=== PATIENT | female | born 1940 | race Caucasian/White ===

== ENCOUNTER 2017-01-25 13:35 | Observation (INO) | payer MEDICARE ==
--- NOTE | ~2017-01-25 | A ---
[facility] Nutrition Therapy DATE: 01/27/17 Patient: CAMERON HILLS Physician: JOSÉ MIGUEL Address: [address] [place] [address] ROAD Room/Bed: [address] [place] [address], Zip: [place] [address] Admit Date: 01/26/17 Date of : 38 Height: 5 5 Weight: 116 53 NUTRITIONAL ASSESSMENT: REASON: 3 NUTRITION RISK PT RE: 5# WEIGHT LOSS + POOR PO INTAKE PT IS 76 Y.O. FEMALE ADMITTED FOR ALTERED MENTAL STATUS, HALLUCINATIONS PMH: HTN, COPD, CVA, DEMENTIA, SEIZURE DISORDER, HX OF DYSPHAGIA Anthropometrics: 5'5", WT: 116# (53 KG), BMI: 19.3, 93%IBW Labs: WNL Meds: NACL, KEPPRA I/O & Bowel function: 720/900 Skin Integrity: DRY FLAKY SKIN Estimated Nutrition Needs: INCREASED NUTRIENT NEEDS 2' DECREASED PO INTAKE AND APPETITE, CURRENT CONDITION Assessment: CHART REVIEWED AND EVENTS NOTED. PT SEEN FOR WEIGHT LOSS + POOR PO INTAKE. PT SLIGHTLY CONFUSED AT TIME OF VISIT REPORTING DECREASED PO INTAKE 2' DECREASED APPETITE. PT NOTES "HAVING DECREASED APPETITE FOR QUITE SOME TIME". PT HAD LUNCH TRAY AT BEDSIDE-NOTED PT ONLY TOOK BITES (PER RD OBSERVATION). PT ADDS THAT SHE ONLY ATE A PANCAKE AND DRANK JUICE FOR BREAKFAST. PT UNABLE TO REPORT ANY RECENT WEIGHT LOSS 2' BEING CONFUSED AT THIS TIME. PER RD ASSESSMENT IN MAY 2016, PT'S UBW IS ~121#. THIS RD ENCOURAGED ADEQUATE KCAL AND PROTEIN INTAKE (SMALL FREQUENT MEALS) + SUPPLEMENT INTAKE, PT AGREED TO ENSURE PUDDING BID, RD WILL ORDER. PT NOT APPROPRIATE FOR DIET EDUCATION. RD TO FOLLOW. SEE RECOMMENDATIONS BELOW. Dx: INADEQUATE PROTEIN-ENERGY INTAKE R/T DECREASED APPETITE AEB PT REPORT ABOVE, ?WEIGHT LOSS NOTED, LOW BODY WEIGHT. Intervention: 1. HH DIET 2. BUTTERSCOTCH ENSURE PUDDING BID Monitoring, Evaluation and Goals: 1. ORAL INTAKE; PROVIDE AND CONSUME ADEQUATE NUTRITION W/NO C/O N/V/D (PO>50%) 2. WEIGHTS; PREVENT FURTHER WEIGHT LOSS; PROMOTE LEAN BODY MASS MONITOR: -PO INTAKE/APPETITE [facility] Nutrition Therapy DATE: 01/27/17 Patient: CAMERON HILLS Physician: JOSÉ MIGUEL Address: [address] [place] [address] Room/Bed: [address] [place] [address], Zip: [place] [address] Admit Date: 01/26/17 Date of : 38 Height: 5 5 Weight: 116 53 -SUPPLEMENT INTAKE -WEIGHTS Recommendations: 1. ORDER BUTTERSCOTCH ENSURE PUDDING BID W/MEALS 2. APPRECIATE FAMILY AND STAFF TO ENCOURAGE PO AND SUPPLEMENT INTAKE. PROVIDE ASSISTANCE W/ORDERING MEALS NEEDED 3. IF PO INTAKE MINIMAL, CHANGE CURRENT DIET ORDER TO REGULAR TO ALLOW MORE FOOD CHOICES RD WILL F/U PER PROTOCOL PT IS MILD/MODERATELY COMPROMISED Respectfully, TATYANA VASQUEZ MS, RD, LD Food and Nutritional Services [facility] cc: client file
--- NOTE | ~2017-01-25 | CR72 ---
[facility] A Service of [facility] & [facility] RADIOLOGY TEXT RESULTS PATIENT: CAMERON HILLS LOCATION: [facility] : 38 UNIT #: [id number] AGE: [address]: Jane Soto MD SEX: F ORDER DR: [id number] [facility] [address] [place], [place] [address] [id number] MR#: [id number] Acc #: [id number] NAME: CAMERON HILLS : 1940 SEX: F STUDY DATE/TIME: 01/25/2017 13:39 UNIT: [facility] ROOM: STUDY DESCRIPTION: CR Chest Single View Portable Attending Physician: Jane Soto M.D. Ordering Physician: Jane Soto M.D. Primary Care Physician: Tomas Parker M.D. MEDICAL IMAGING REPORT This report is preliminary unless electronic signature is present EXAM Portable chest. HISTORY Shortness of air, smoker. COMPARISON 06/11/2016 FINDINGS Portable view of the chest demonstrates prominent interstitial markings, patchy hyperlucency suggesting underlying emphysema. No acute airspace disease or consolidation. No effusions. Heart and mediastinum unremarkable. No invasive tubes or lines. No pneumothorax. Dictated by... Milagro Drummond M.D. THIS IS AN ELECTRONICALLY VERIFIED REPORT Milagro Drummond M.D. at 01/25/2017 3:32 PM RYAN/emmanuel TD: 01/25/2017 15:11 JOB #: [id number] MEDICAL IMAGING REPORT Page 1 of 1 COPY
--- NOTE | ~2017-01-25 | DS ---
Unit #: [id number] #: [id number] Patient: CAMERON HILLS [id number] [address] [place], [place] [address] [id number] I MR#: [id number] NAME: CAMERON HILLS. ROOM: 218 Age: 76 Sex: F Admission Date: 01/26/2017 : 1940 Discharge Date: 01/30/2017 Attending Physician: Wesley Morse M.D. Primary Care Physician: Tomas Parker M.D. DISCHARGE SUMMARY DISCHARGE DIAGNOSES 1. Toxic metabolic encephalopathy. 2. 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 3. Cervical dystonia. 4. History of cerebrovascular accident. 5. Chronic obstructive pulmonary disease. 6. Seizure disorder. 7. History of urinary tract infections. 8. History of skin cancer. DISCHARGE MEDICATIONS 1. Keppra 500 mg b.i.d. 2. Risperdal 0.5 mg twice daily. 3. Klonopin 0.5 mg twice daily. 4. Singulair 10 mg daily. 5. Multivitamins, one daily. 6. Aspirin 81 mg daily. 7. Baclofen 20 mg t.i.d. 8. Cholecalciferol 1000 units daily. 9. Symbicort 80/4.5, two puffs b.i.d. 10. Combivent, two inhalations q.i.d. DISPOSITION Home or [facility] unit. HOSPITAL COURSE 76-year-old white female who is followed by [facility] and has not seen us in the office in quite some time. She has been followed by Dr. Cristobal in the past but now receives her care to [facility]. She no longer lists Gilmer Parker as her primary care provider. We were called to admit the patient despite this. She presented to the emergency room because she was having hallucinations. She has not had any increased shortness of breath. She had some cough. She denied any dysuria. She said she wasn't on any new medicines. She wasn't sure but thought her son was moving to [place]. She had had hallucinations about a daughter. On presentation to the emergency room, her chest x-ray showed no infiltrate, mass or congestion. There were emphysematous changes bilaterally. Arterial blood gases were not done. Room air O2 saturation was 95%. BMP was unremarkable. Glucose was 89. Ammonia level was 18. Coagulation studies were normal. White blood cell count was 6000, hematocrit was 35.9. Urine tox screen was positive for benzodiazepines. Urine culture was 2+ leukocyte esterase. She was admitted to the hospital because of possible toxic metabolic encephalopathy and possible UTI. She was seen by Unit #: [id number] #: [id number] Patient: CAMERON HILLS José Krishna, psychiatry, in consult who felt that she had major neurocognitive disorder secondary to Alzheimer disease with behavioral consequences and psychosis. He decreased her dose of Klonopin from 1.5 mg twice a day to 0.5 mg twice a day and added Risperdal 0.5 mg twice daily. Her urine culture initially returned mixed growth, 40,000 colonies/mL. Subsequent followup revealed mixed growth greater than 100,000, likely another contaminated sample. Another urine was collected and pending. She remained afebrile during her hospital stay. Her white count remained low at 7800. Dr. Krishna recommended [facility]. Her son was contacted Monday and he is in town and I understand is willing and plans to take care of his mother when she returns home. She has received five days of Rocephin. We will try to follow up on the urine culture and make recommendations if that comes back positive. She will follow up with [facility]. Dictated by... Wesley Morse M.D. ANKUR/tala TD: 01/31/2017 08:25 JOB #: [id number] DISCHARGE SUMMARY Page 1 of 1 X Wesley Morse MD X DISCHARGE SUMMARY
--- NOTE | ~2017-01-25 | EKG ---
PATIENT: CAMERON HILLS UNIT #: [id number] Ventricular Rate: 62 BPM Atrial Rate: 62 BPM P-R Interval: 202 ms QRS Duration: 66 ms Q-T Interval: 450 ms QTC Calculation(Bezet): 456 ms P Loyal: 68 degrees Calculated R Loyal: 39 degrees Calculated T Loyal: 55 degrees Diagnosis Line: Normal sinus rhythm with sinus arrhythmia Diagnosis Line: Normal ECG Diagnosis Line: When compared with ECG of 09-JUN-2016 13:37, Diagnosis Line: No significant change was found Diagnosis Line: Confirmed by CHARLOTTE CANTU MD ([id number]) on 01/26/2017 Diagnosis Line: 7:58:52 PM INTERPRETING MD: PEPE THOMPSON
--- NOTE | ~2017-01-25 | CO ---
Unit #: [id number] #: [id number] Patient: CAMERON ESTEBAN [id number] [address] [place], [place] [address] [id number] I MR#: [id number] NAME: CAMERON ESTEBAN. ROOM: 218 Age: 76 Sex: F Admission Date: 01/26/2017 : 1940 Attending Physician: Wesley Morse M.D. Primary Care Physician: Tomas Parker M.D. Consultation Date: 01/26/2017 CONSULTATION REPORT REASON FOR CONSULTATION Dementia, psychosis. HISTORY OF PRESENT ILLNESS Ms. Cameron Esteban is a 76-year-old white female, seen in room 218, bed 1 at [facility] on 01/26/2017 for the above-mentioned complaint. The patient has a history of COPD, seizure, cervical dystonia, CVA, multiple admissions for altered mental status. The patient was admitted with altered mental status. The patient reported having problems with dreams, forgetfulness, confusion. The patient carries a diagnosis of dementia and currently having above-mentioned symptoms. The patient was dressed casually and sitting comfortably. The patient reported having hallucination, confusion, inability to care for herself. According to the staff, the patient has been calling 911. The patient currently denied any suicidal or homicidal ideation. Denied any auditory or visual hallucination, but having delusions, paranoia. PAST PSYCHIATRIC HISTORY Remarkable for history of dementia, history of psychosis. MEDICAL HISTORY The patient has a history of COPD; seizure disorder; chronic back pain; cervical dystonia, followed by Neurology; recurrent urinary tract infection; recurrent admission for toxic-metabolic encephalopathy; history of skin cancer; chronic pain. ALLERGIES To Tegretol, tetanus, Botox. MEDICATIONS The patient is on DuoNeb, Tylenol, Keppra, Remeron 15 mg at bedtime, MiraLax, Lasix, Protonix, baclofen, vitamin D, Symbicort. FAMILY HISTORY AND SOCIAL HISTORY The patient lives by herself. The patient has a poor support system. No history of any abuse. Denied any use of drugs or alcohol. REVIEW OF SYSTEMS Complete review of systems is unremarkable. The patient denied any complaints. MENTAL STATUS EXAMINATION General appearance; the patient is thin built, casually dressed in hospital attire, lying comfortably in bed. Attention span and Unit #: [id number] #: [id number] Patient: CAMERON ESTEBAN concentration, fair. Speech; slow, rapid. Oriented in self, place, and time. Mood and affect, labile. Thought process, circumstantial. Thought content; the patient denied any thoughts of harming self or others, or any auditory or visual hallucination, but paranoid, delusional. Recent and remote memory; fair to poor, problem with short-term and immediate memory. Language, fair. Fund of knowledge, fair. Insight and judgment, fair to slightly impaired. DIAGNOSES Psychiatric: Major neurocognitive disorder secondary to Alzheimer disease with behavioral disturbances, F02.81; psychosis, not otherwise specified, F29.0. Secondary diagnosis: Deferred. Medical diagnosis: Please refer to H and P. Stressors: Psychosocial stressors. ASSESSMENT/PLAN 1. Supportive psychotherapy and psychoeducation provided to the patient. 2. Educated about benefits and side effects of medication and course and prognosis of illness. 3. Advised to start the patient on Risperdal 0.5 mg b.i.d. and advised to lower the dosage of Klonopin to 0.5 mg b.i.d. We will closely monitor. If needed, consider further adjustment of medication or consider inpatient Geropsych Unit admission for psychiatric stabilization. Please feel free to call if any questions, telephone #[phone]. Dictated by... Lisa Levy/christa TD: 01/28/2017 05:36 JOB #: [id number] CONSULTATION REPORT Page 1 of 1 X Panda Krishna MD X CONSULTATION REPORT
--- NOTE | ~2017-01-25 | CO ---
Unit #: [id number] #: [id number] Patient: CAMERON ESTEBAN [id number] [facility]. [place], [place] [address] [id number] I MR#: [id number] NAME: CAMERON ESTEBAN. ROOM: 218 Age: 76 Sex: F Admission Date: 01/26/2017 : 1940 Attending Physician: Wesley Morse M.D. Primary Care Physician: Tomas Parker M.D. Consultation Date: 01/27/2017 CONSULTATION REPORT REASON FOR CONSULTATION Followup. DISCUSSION Ms. Cameron Esteban is a 76-year-old female, seen as a followup on 01/27/2017 in room 218, bed 1 at [facility]. The patient was compliant, cooperative. Mood is sad, dysphoric, flat. The patient denied any complaints. The patient was eating her lunch, cooperative, redirectable. No aggression, but guarded, paranoid, problem with memory, confusion. REVIEW OF SYSTEMS Complete review of systems is unremarkable. MENTAL STATUS EXAMINATION General appearance; the patient dressed casually in hospital attire. Attention span and concentration, poor. Speech, slow in volume. Oriented in place and person. Mood and affect were labile. Thought process, circumstantial. Thought content; guarded, paranoid, delusional. Recent and remote memory, poor. Language, intact. Fund of knowledge, fair. Insight and judgment, fair to slightly impaired. DIAGNOSES Psychiatric: Probable major neurocognitive disorder secondary to Alzheimer disease with behavioral disturbances, F02.81; psychosis, not otherwise specified, F29.0. ASSESSMENT/PLAN 1. Supportive psychotherapy and psychoeducation provided to the patient. 2. Educated about benefits and side effects of medication and course and prognosis of illness. 3. Recommending to continue with a combination of Risperdal and Klonopin with a plan to transfer the patient to geropsych unit for psychiatric stabilization. Please feel free to call if any questions, telephone #[phone]. Dictated by... Panda Krishna M.D. ED/christa TD: 01/28/2017 05:12 JOB #: [id number] Unit #: [id number] #: [id number] Patient: CAMERON ESTEBAN CONSULTATION REPORT Page 1 of 1 X Panda Krishna MD CONSULTATION REPORT
--- NOTE | ~2017-01-25 | CO ---
Unit #: [id number] #: [id number] Patient: CAMERON ESTEBAN [id number] [address] [place], [place] [address] [id number] I MR#: [id number] NAME: CAMERON ESTEBAN. ROOM: 218 Age: 76 Sex: F Admission Date: 01/26/2017 : 1940 Attending Physician: Wesley Morse M.D. Primary Care Physician: Tomas Parker M.D. CONSULTATION REPORT HISTORY OF PRESENT ILLNESS Ms. Esteban is a 76-year-old white female with a history of COPD, seizure disorder, cervical dystonia, history of CVA, who has had multiple admissions for altered mental status. She presented to the emergency room, because she had been having hallucinations. She had not really had any increased shortness of breath. She has had some cough and congestion and thought she might have a cold. She had no dysuria. She does not think she was on any new medications. Also, she cannot tell me what medicines she is on. Apparently her son is moving back to [place]. In the chart, on the ER note, it was noted that she may have been seen by [facility] and APS was to be contacted. Apparently, the son was called to take the patient home, but he refused; apparently, he was driving to the [place]. She was admitted for evaluation of hallucinations and confusion and inability to care of herself. Her lab work revealed a chest x-ray without infiltrate, mass, or congestion with evidence of emphysematous changes bilaterally. No blood gases were done, but her room air O2 saturation in the emergency room was 95%. Her BMP was unremarkable, glucose was normal at 89. Her ammonia level was 18. Coagulation studies were normal. White blood cell count was 6000, hematocrit was 35.9, platelet count was normal. Urine tox screen was positive for benzodiazepines. Urinalysis was 2+ leukocyte esterase, 25 to 50 white blood cells. Urine culture was sent. PAST MEDICAL HISTORY Significant for COPD, seizure disorder, chronic back pain, cervical dystonia followed by Dr. Burt of Neurology, recurrent urinary tract infections, recurrent admissions for toxic metabolic encephalopathy, history of skin cancer, chronic pain. ALLERGIES Tegretol, tetanus, and Botox. HOME MEDICATIONS She is unsure what they were, but in 05/2016 her discharge medicines included DuoNeb, Tylenol, Keppra 500 b.i.d., Remeron 15 daily, milk of magnesia every 6 hours as needed, MiraLax 17 g daily, Lasix 20 mg daily, Protonix 40 daily, baclofen 20 daily, vitamin D 1000 units daily, and Symbicort 80/4.5 two puffs b.i.d. SOCIAL HISTORY Has lives in her house, is not very mobile, smokes a half a pack of cigarettes a day. Denies alcohol. Apparently, son moving back to [place]. Unit #: [id number] #: [id number] Patient: CAMERON ESTEBAN REVIEW OF SYSTEMS GENERAL: No definite fevers or chills. HEENT: No rhinorrhea or nasal congestion. PULMONARY: Does admit to dyspnea on exertion. Some cough. No purulent sputum. No hemoptysis. GI: Says she is on the verge of diarrhea. No nausea or vomiting. : No overt hematuria or dysuria. She does have frequent urinary tract infections. ENDOCRINE: No polyuria or polydipsia. HEMATOLOGIC: No easy bruising or bleeding. SKIN: No rash, but very dry skin. CARDIAC: No chest pain or palpitations. NEURO: Does have some history of CVA and cervical dystonia. PHYSICAL EXAMINATION GENERAL: White female, in no distress. VITAL SIGNS: Blood pressure is 122/70, pulse is 86, respiratory rate 19, afebrile. HEENT: Normocephalic and atraumatic. Pupils are equal, round, and reactive. Sclerae nonicteric. Nasal passages patent. Posterior pharynx clear. Mucous membranes moist. Edentulous. NECK: Supple. Trachea midline. No cervical or supraclavicular lymphadenopathy. LUNGS: Diminished breath sounds bilaterally. Prolonged expiratory phase. No wheezing. CARDIAC: Regular rate and rhythm. Could not appreciate murmur, rub, or gallop. ABDOMEN: Nontender. Bowel sounds present. No hepatosplenomegaly. EXTREMITIES: Without clubbing, cyanosis, or edema. Pulses 1+ bilaterally. NEURO: Cervical dystonia. Awake. She is oriented to person, place, and time. She knows the president. She knows her birthday. She appears to be hallucinating, though thinking that her daughter is in the room. She moves all 4 extremities. Cranial nerves grossly intact. Muscle strength symmetric. Affect calm. SKIN: Warm and dry. Dry, scaly skin. IMPRESSION 1. Toxic metabolic encephalopathy. 2. Hallucinations. 3. Possible urinary tract infection. 4. Chronic obstructive pulmonary disease and tobacco abuse. 5. Cervical dystonia. 6. Seizure disorder. PLAN We will cover with antibiotics for possible urinary tract infection. We will have social service, discharge planning, and APS notified of the patient's situations. We will have Psychiatry see her for hallucinations. We will contact her drugstore to determine exactly what medication she is taking and she is unaware. We will place her on SCDs. Further recommendations pending this. Dictated by... Wesley Morse M.D. Unit #: [id number] #: [id number] Patient: CAMERON ESTEBAN LPM/modl TD: 01/27/2017 05:28 JOB #: [id number] CONSULTATION REPORT Page 1 of 1 X Wesley Morse MD X CONSULTATION REPORT
[~2017-01-25 13:35] MED LIST: ACETAMINOPHEN PO; ALBUTEROL MININEB NEB; ALBUTEROL17 GM; ALBUTEROL17 GM INH; AMBIEN; AMBIEN PO; AMBIEN10 MG PO; ARIXTRA2.5 MG/0.1 SQ; ASPIR-TRIN325 MG PO; ASPIRIN; ASPIRIN81 M2 PO; ASPIRIN81 MG PO; ATIVAN; ATIVAN PO; ATIVAN0.5 MG PO; BACLOFEN10 MG PO; BACLOFEN20 M1 PO; BENADRYL PO; CELEXA PO; COLACE; COLACE PO; COMBIVENT MININEB INH; COMBIVENT U/D3 M1 INH; COMBIVENT14.7 GM INH; CYMBALTA PO; DUONEB; FLORASTOR250 M1 PO; GAS-X166 MG; K-DUR10 MEQ PO; KCL PO; KEPPRA500 M1 PO; KEPPRA500 M2 PO; KEPPRA500 MG PO; KLONOPIN1 MG PO; LASIX20 MG PO; LEXAPRO PO; LEXAPRO20 MG PO; LEXAPRO5 MG PO; LORAZEPAM0.5 MG PO; LYRICA PO; LYRICA100 MG PO; LYRICA50 MG PO; METHADOSE; MILK OF MAGNESIA PO; MIRALAX17 G2 PO; MORPHINE IR PO; MORPHINE SULFA100 M1 PO; MORPHINE SULFA100 M2 PO; MORPHINE SULFAT60 M1 PO; MYLANTA GAS80 M1 PO; NEXIUM PO; NORFLEX100 M1 PO; NORFLEX100 MG; NORFLEX100 MG PO; NORVASC2.5 MG PO; OXYCODON-ACETA1 EAC1 PO; PAXIL PO; PERCOCET 7.5-31 EACH PO; PERCOCET 7.5/321 TAB PO; PERCOCET5/325 PO; PLAVIX; PLAVIX PO; PREVACID; PROTONIX20 MG PO; REMERON15 MG PO; SENNA PO; SYMBICORT INH; TRAMADOL HCL50 M1 PO; TRAMADOL HCL50 M2 PO; ULTRAM PO; VANCOMYCIN HCL1 GM IV; VITAMIN D-32000 UNI1 PO; ZOCOR; ZOFRAN PO
[2017-01-25 14:06] LABS: BASOPHIL# 0.1 X10e3 (0-0.3); BASOPHIL% 1.2 % (0-2.5); EOSINOPHIL# 0.1 X10e3 (0-0.7); EOSINOPHIL% 0.9 % (0.0-7.0); HEMATOCRIT 35.9 % (35.0-45.0); HEMOGLOBIN 11.7 gm/dL (12.0-16.0); LYMPHOCYTE# 1.5 X10e3 (1.0-3.5); LYMPHOCYTE% 25.2 % (17.0-45.0); MEAN CELL VOLUME 80.7 FL (83-96); MEAN CORPUSCULAR HEMOGLOBIN 26.4 PG (28-34); MEAN CORPUSCULAR HGB CONC 32.7 g/dL (30-36); MEAN PLATELET VOLUME 8.2 FL (6.5-11.5); MONOCYTE# 0.6 X10e3 (0-1.0); MONOCYTE% 10.2 % (3.0-12.0); NEUTROPHIL# 3.7 X10e3 (1.5-7.1); NEUTROPHIL% 62.5 % (40-75); PLATELET COUNT 237 X10e3 (140-420); RED BLOOD COUNT 4.44 X10e (3.90-5.30)
[2017-01-25 14:07] LABS: DIFF IND NO
[2017-01-25 14:18] LABS: INR 1.1; PROTHROMBIN TIME (PATIENT) 11.2 SECONDS (9.6-11.5)
[2017-01-25 14:24] LABS: URINE SOURCE CLEAN CATCH
[2017-01-25 14:31] LABS: ALBUMIN SERUM 4.3 g/dL (3.5-5.0); BILIRUBIN, DIRECT 0.1 mg/dL (0.0-0.2); BILIRUBIN,INDIRECT 0.9 mg/dL (0.0-0.9); BUN/CREATININE RATIO 23.33; CALCIUM SERUM 9.1 mg/dL (8.4-10.2); CREATININE SERUM 0.9 mg/dL (0.6-1.4); GLOM FILT RATE Estimated 61.3 mL/min (>60); POTASSIUM 3.5 mmol/L (3.5-5.1); PROTEIN TOTAL SERUM 7.8 g/dL (6.0-8.3)
[2017-01-25 14:36] LABS: URINE APPEARANCE CLEAR; URINE BILIRUBIN NEG (NEG); URINE BLOOD NEG (NEG); URINE COLOR YELLOW; URINE GLUCOSE NEG (NEG); URINE KETONE 1+ (NEG); URINE LEUKOCYTE ESTERASE 2+ (NEG); URINE NITRATE NEG (NEG); URINE PROTEIN NEG (NEG); URINE SPECIFIC GRAVITY 1.022 (1.003-1.035)
[2017-01-25 14:39] LABS: CULTURE INDICATED? YES; URBCS1 AUWI 0-2 /[HPF] (0-2); URINE BACTERIA AUWI NEG (NEGATIVE); URINE SQUAMOUS EPITHELIAL CELL NONE SEEN /[HPF]; UWBCS1 AUWI 25-50 (0-5)
[2017-01-25 14:52] LABS: AMPHETAMINE NEG (NEG); BARBITURATES NEG (NEG); BENZODIAZEPINES POS (NEG); COCAINE NEG (NEG); MARIJUANA NEG (NEG); OPIATES NEG (NEG); TRICYCLIC ANTIDEPRESSANTS NEG (NEG); U METHADONE NEG (NEG)
[2017-01-26] MEDS ORDERED: SINGULAIR PO (07:51)
[2017-01-26] MEDS ORDERED: KEPPRA500 M2 PO (07:51)
[2017-01-26] MEDS ORDERED: VITAMIN D1000 UNIT PO (07:51)
[2017-01-26] MEDS ORDERED: REMERON15 MG PO (07:52)
[2017-01-26] MEDS ORDERED: KLONOPIN0.5 M3 PO (07:52)
[2017-01-26] MEDS ORDERED: BACLOFEN20 M1 PO (07:53)
[2017-01-26] MEDS ORDERED: PHENERGAN25 M1 PO (07:55)
[2017-01-26] MEDS ORDERED: B COMPLEX1 EACH PO (07:56)
[2017-01-26] MEDS ORDERED: MOTRIN IB200 M1 PO (07:56)
[2017-01-26] MEDS ORDERED: CENTRUM SILVER PO (07:56)
[2017-01-26] MEDS ORDERED: ASPIRIN81 MG PO (07:57)
[2017-01-26] MEDS ORDERED: KLONOPIN1 MG PO (10:48)
[2017-01-30 05:14] LABS: HEMATOCRIT 35.9 % (35.0-45.0); HEMOGLOBIN 11.7 gm/dL (12.0-16.0); MEAN CELL VOLUME 80.9 FL (83-96); MEAN CORPUSCULAR HEMOGLOBIN 26.4 PG (28-34); MEAN CORPUSCULAR HGB CONC 32.7 g/dL (30-36); MEAN PLATELET VOLUME 8.7 FL (6.5-11.5); RED BLOOD COUNT 4.44 X10e (3.90-5.30); RED CELL DISTRIBUTION WIDTH 14.2 % (11.0-15.5); WHITE BLOOD COUNT 7.8 X10e3 (4.0-10.5)
[2017-01-30 06:37] LABS: BUN/CREATININE RATIO 38.33; CALCIUM SERUM 8.9 mg/dL (8.4-10.2); CREATININE SERUM 0.6 mg/dL (0.6-1.4); GLOM FILT RATE Estimated 87.3 mL/min (>60); POTASSIUM 4.1 mmol/L (3.5-5.1)
[2017-01-30 09:09] LABS: URINE SOURCE CATH
[2017-01-30 09:17] LABS: URINE APPEARANCE CLEAR; URINE BILIRUBIN NEG (NEG); URINE BLOOD NEG (NEG); URINE COLOR YELLOW; URINE GLUCOSE NEG (NEG); URINE KETONE TRACE (NEG); URINE LEUKOCYTE ESTERASE TRACE (NEG); URINE NITRATE NEG (NEG); URINE PROTEIN NEG (NEG)
[2017-01-30 09:20] LABS: URINE BACTERIA AUWI NEG (NEGATIVE); URINE SQUAMOUS EPITHELIAL CELL OCC /[HPF]
[2017-01-30] MEDS ORDERED: RISPERDAL0.5 MG PO (14:47)
[2017-01-30] MEDS ORDERED: ASPIRIN81 M2 PO (14:48)
[2017-01-30] MEDS ORDERED: SYMBICORT80 INH (14:51)
[2017-01-30] MEDS ORDERED: COMBIVENT U/D3 M3 INH (14:51)
== END 2017-01-31 12:02 | disposition home or self-care (01) ==
LOC: CED 13:35 → CEDOF 01-26 00:55 → C2A 01-26 08:29
PROVIDERS: Emergency Medicine; Internal Medicine
DX: G92 Toxic encephalopathy (principal); G30.9 Alzheimer's disease, unspecified; F02.81 Dementia in other diseases classified elsewhere, unspecified severity, with behavioral disturbance; G24.8 Other dystonia; Z86.73 Personal history of transient ischemic attack (TIA), and cerebral infarction without residual deficits; J44.9 Chronic obstructive pulmonary disease, unspecified; G40.909 Epilepsy, unspecified, not intractable, without status epilepticus; Z87.440 Personal history of urinary (tract) infections; Z85.828 Personal history of other malignant neoplasm of skin; F17.210 Nicotine dependence, cigarettes, uncomplicated; Z79.82 Long term (current) use of aspirin
CPT/HCPCS: 36415; 71010; 80048; 80076; 80307; 81003; 82140; 82947; 85025; 85027; 85610; 87086; 93005; 94640; 94664; 94760; 96374; 96375; 96376; 99283; G0378; J0696